=== PATIENT | male | born 1970 | race Caucasian/White ===

== ENCOUNTER 2016-09-04 17:03 | Emergency (ER) ==
[2016-09-04] MEDS ORDERED: NORFLEX IM ONE (18:37)
[2016-09-04] MEDS ORDERED: NORCO-10 PO ONE (18:38)
--- NOTE | 2016-09-04 18:50 | PROVIDER DOCUMENTATION ---
HPI-Musculoskeletal Pain/Inj - GENERAL Chief Complaint: Back Pain Stated Complaint: BACK PAIN Time Seen by Provider: 09/04/16 18:27 Source: patient - HX OF PRESENT ILLNESS-MUSKULOSKELTAL Nature of Presenting Problem: 46 yo male presents to ER with c/o back pain after twisting with radiation into right leg about 4 hours ago. He was seeing a pain clinic for chronic neck pain but could not afford payments. He has a referral set up with Dr. Saba in regards to his back. Quality of Pain: reports: aching, burning Severity in ED: moderate Onset/Duration: 4-6 hours ago Timing: still present Modifying Factors: improves with: nothing Any recent injury?: Yes Locality of Occurance: Home Similar Symptoms Previously?: Yes Recently seen or treated by another doctor?: Yes - BACK & NECK PAIN/INJURY Back/Neck Pain Location: reports: lumbar spine, paraspinous muscles Context / Method of Injury: reports: unknown Associated Symptoms: reports: denies symptoms History of Chronic Neck or Back Pain?: Yes Review of Systems - Adult - REVIEW OF SYSTEMS - ADULT Constitutional: reports: no symptoms reported Eyes: reports: no symptoms reported Ears, Nose, Mouth & Throat: reports: no symptoms reported Cardiovascular: reports: no symptoms reported Respiratory: reports: no symptoms reported Gastrointestinal: reports: no symptoms reported Genitourinary: reports: no symptoms reported Musculoskeletal: reports: see HPI, back pain Integumentary: reports: no symptoms reported Neurological: reports: no symptoms reported Psychiatric: reports: no symptoms reported Endocrine: reports: no symptoms reported Hematologic/Lymphatic: reports: no symptoms reported Allergic/Immunologic: reports: no symptoms reported All Other Systems: Reviewed and Negative Past History - Adult - PAST MEDICAL HISTORY-ADULT Review of Records: reports: Old Records Reviewed, Nursing Assessment Review, Medications Reviewed, Social history reviewed & non-contributory. Cardiovascular: reports: HTN Gastrointestinal: reports: GERD Genitourinary: reports: kidney stones Musculoskeletal: reports: chronic pain (back and neck) Neurological: reports: Seizures/Epilepsy Psychiatric: reports: anxiety, depression - IMMUNIZATION STATUS Childhood Immunizations: See Nurse Assessment Flu Vaccine: See Nurse Assessment - SOCIAL HISTORY Smoking: cigarettes, greater than 1 pack/day (1 ppd) Provider spent 3-5 mins advising pt. on dangers of tobacco.: Discussed manners to quit use, and f/u contacts for add'l counseling. Substance Use: denies Living Situation: family Physical Exam-Injury Related - Physical Exam-Injury Related Initial Vital Signs Reviewed: Yes General Appearance: appears well, alert, no apparent distress Eyes: PERRL/EOMI Head, Ears, Nose, Mouth & Throat: normocephalic/atraumatic Respiratory: no respiratory distress Back Exam: no CVA tenderness, decreased range of motion, muscle spasm (right iliolumbar area), vertebral tenderness (mild) Integumentary: normal color, warm/dry Neurologic: grossly normal Psych/Mental Status: normal mood/affect, normal thought content, normal thought process, oriented x 3 - Glascow Coma Score Best Eye Response ([place]ord): (4) open spontaneously Best Verbal Response ([place]): (5) oriented Best Motor Response ([place]): (6) obeys commands [place] Total: 15 Progress - PLAN OF CARE/RESULTS Progress/Plan/Lab Results: 1839- Orders Category Date Time Status Hydrocodone/APAP 10 mg/325 mg [Eudora-10] Med 09/04/16 18:38 Discontinued 1 each PO NOW ONE Orphenadrine [Norflex] Med 09/04/16 18:37 Discontinued 60 mg IM NOW ONE Vital Signs - 24 hr 09/04/16 17:19 Pulse Rate 108 H Respiratory 18 Rate Blood Pressure 123/64 Departure - Departure Time of Disposition Order: 19:03 DIAGNOSIS: Muscle spasm Back pain Qualifiers: Back pain location: low back pain Chronicity: acute Back pain laterality: bilateral Sciatica presence: with sciatica Sciatica laterality: sciatica of right side Qualified Code(s): M54.41 - Lumbago with sciatica, right side Low back strain Qualifiers: Encounter type: initial encounter Qualified Code(s): S39.012A - Strain of muscle, fascia and tendon of lower back, initial encounter Disposition: HOME 01 Certified Medical Emergency: Emergent Condition: Stable Additional Instructions: Follow up with primary care doctor. Take medications as prescribed. Apply ice to sore areas several times a day. Slow stretching. ED Follow Up Instructions: You have been treated by a care provider in the Emergency Department. These instructions are being provided to you so you can have an understanding of how to care for yourself upon discharge. Upon discharge from the Emergency Department, you are responsible for making arrangements for follow-up care by a physician of your choice. Take all prescribed medications as directed. Return to the Emergency Department immediately for any new or worsening symptoms. You may call the Physician Referral phone number at [phone] to obtain a list of Physicians who are taking new patients. Prescriptions: Naproxen 500 mg PO BID PRN PRN #20 tablet PRN Reason: Pain Referrals: None,PCP [Primary Care Provider] - Attestation - Physician/ PAUL Attestation Patient care was provided by Advanced Practice Provider:: Yes Advanced Practice Provider:: Amara Yates Advanced Practice Provider documentation review:: The Mid-level provider documentation, treatment plan and medical decision making was reviewed by the physician who agrees with all treatment and medical decision making by the MLP.
[2016-09-04 19:21] VITALS: BP 132/85
== END 2016-09-04 19:21 | disposition home or self-care (01) ==
LOC: P.ED 17:03
DX: S39.012A Strain of muscle, fascia and tendon of lower back, initial encounter (principal); M62.830 Muscle spasm of back; M54.41 Lumbago with sciatica, right side; M79.604 Pain in right leg; M79.1 Myalgia; G89.29 Other chronic pain; M54.2 Cervicalgia; I10 Essential (primary) hypertension; R56.9 Unspecified convulsions; F17.210 Nicotine dependence, cigarettes, uncomplicated; Z79.899 Other long term (current) drug therapy; Z71.6 Tobacco abuse counseling; Z87.442 Personal history of urinary calculi; X58.XXXA Exposure to other specified factors, initial encounter
CPT/HCPCS: 96372; J2360